=== PATIENT | male | born 2000 | race Caucasian/White ===

== ENCOUNTER 2023-01-14 01:23 | Emergency (ER) | payer OTHER ==
[2023-01-14] MEDS ORDERED: Dexamethasone 10 MG/ML VIAL ONE (02:26)
== END 2023-01-14 02:43 | disposition home or self-care (01) ==
LOC: CSHERS 01:23
DX: J02.9 Acute pharyngitis, unspecified (principal)
CPT/HCPCS: 99283; J1100